=== PATIENT | female | born 1980 | race Caucasian/White ===

== ENCOUNTER 2022-08-21 07:03 | Emergency (ER) | payer OTHER ==
[~2022-08-21] VITALS: Ht 175.3 cm; Wt 159.1 kg
[2022-08-21 07:06] VITALS: BP 166/106
[2022-08-21] MEDS ORDERED: ACET-812 PO (08:06)
== END 2022-08-21 08:17 | disposition home or self-care (01) ==
LOC: ER 07:04
DX: B34.9 Viral infection, unspecified (principal); J34.89 Other specified disorders of nose and nasal sinuses; R05.9 Cough, unspecified; J02.9 Acute pharyngitis, unspecified; R50.9 Fever, unspecified; Z79.899 Other long term (current) drug therapy
CPT/HCPCS: 71046; 87502; 87503; 99284